=== PATIENT | female | born 1975 | race Caucasian/White ===

== ENCOUNTER 2019-10-25 21:51 | Emergency (ER) | payer MEDICAID, OTHER ==
[~2019-10-25] VITALS: Ht 157.5 cm; Wt 79.7 kg
[2019-10-25] MEDS ORDERED: ketorolac trometh inj. 60 MG/2 ML VIAL IM ONE (23:45)
[2019-10-26 00:23] VITALS: BP 108/62
== END 2019-10-26 00:24 | disposition home or self-care (01) ==
LOC: ER 21:52
DX: S33.5XXA Sprain of ligaments of lumbar spine, initial encounter (principal); R06.02 Shortness of breath; R05 Cough; F17.200 Nicotine dependence, unspecified, uncomplicated; Z98.51 Tubal ligation status; Z98.890 Other specified postprocedural states; Z88.0 Allergy status to penicillin; X58.XXXA Exposure to other specified factors, initial encounter; Y93.89 Activity, other specified; Y92.89 Other specified places as the place of occurrence of the external cause; Y99.8 Other external cause status
CPT/HCPCS: 71045; 96372; 99283; J1885

== ENCOUNTER 2023-07-07 13:51 | Emergency (ER) | payer OTHER ==
[~2023-07-07] VITALS: Ht 157.5 cm; Wt 77.3 kg
[2023-07-07 13:53] VITALS: TEMP 97.9
[2023-07-07 14:35] LABS: BASOPHILS # (AUTO) 0.1 X10'3 (0-0.2); BASOPHILS % (AUTO) 0.7 % (0-1); EOSINOPHILS # (AUTO) 0.1 X10'3 (0-0.9); EOSINOPHILS % (AUTO) 1.4 % (0-6); HEMOGLOBIN 14.9 g/dl (12.0-16.0); LYMPHOCYTES # (AUTO) 2.8 X10'3 (1.1-4.8); LYMPHOCYTES % (AUTO) 28.6 % (21-51); MEAN CORPUSCULAR HGB CONC 33.8 g/dL (33.0-36.5); MEAN CORPUSCULAR VOLUME 97.5 FL (78-98); MEAN PLATELET VOLUME 8.1 FL (7.4-10.4); MONOCYTES # (AUTO) 0.6 X10'3 (0-0.9); MONOCYTES % (AUTO) 6.1 % (2-12); NEUTROPHILS # (AUTO) 6.1 X10'3 (1.8-7.7); NEUTROPHILS % (AUTO) 63.2 % (42-75); PLATELET COUNT 412 X10'3 (140-440); RED BLOOD COUNT 4.51 X10'6 (4.20-5.60); RED CELL DISTRIBUTION WIDTH 13.2 % (11.5-14.5); WHITE BLOOD COUNT 9.7 X10'3 (4.5-11.0)
[2023-07-07 14:54] LABS: ALANINE AMINOTRANSFERASE 46 U/L (12-78); ALBUMIN 3.7 G/DL (3.4-5.0); ALBUMIN/GLOBULIN RATIO 1.1 (1.1-1.5); ALKALINE PHOSPHATASE 98 IU/L (46-116); ANION GAP 6 (8-16); ASPARTATE AMINO TRANSFERASE 23 U/L (10-37); BILIRUBIN,TOTAL 0.2 MG/DL (0.1-1.0); BLOOD UREA NITROGEN 14 MG/DL (7-18); BUN/CREATININE RATIO 19.7 (10.0-20.0); CALCIUM 9.1 MG/DL (8.5-10.1); CHLORIDE 104 MMOL/L (99-107); CREATININE 0.71 MG/DL (0.40-0.90); GLUCOSE 135 MG/DL (70-104); LIPASE 109 U/L (73-393); POTASSIUM 3.7 MMOL/L (3.5-5.1); SODIUM 138 MMOL/L (135-145); eCRCL 77 ML/MIN; eGFR 88 ML/MIN
[2023-07-07 15:41] VITALS: BP 140/102; PULSE 92; RESP 16; O2SAT 97
[2023-07-07] MEDS ORDERED: CYCL-1 PO (16:28)
[2023-07-07] MEDS ORDERED: NAPR-56 PO (16:28)
== END 2023-07-07 16:44 | disposition home or self-care (01) ==
LOC: ER 13:51
DX: S39.012A Strain of muscle, fascia and tendon of lower back, initial encounter (principal); F17.200 Nicotine dependence, unspecified, uncomplicated; Z98.51 Tubal ligation status; Z98.891 History of uterine scar from previous surgery; Z88.0 Allergy status to penicillin; X58.XXXA Exposure to other specified factors, initial encounter; Y93.89 Activity, other specified; Y92.89 Other specified places as the place of occurrence of the external cause; Y99.8 Other external cause status
CPT/HCPCS: 36415; 80053; 83690; 85025; 99283

== ENCOUNTER 2025-02-13 20:55 | Emergency (ER) | payer OTHER ==
[~2025-02-13] VITALS: Ht 157.5 cm; Wt 82.3 kg
[~2025-02-13 20:55] MED LIST: CYCL-1 PO
[2025-02-13 21:04] VITALS: TEMP 98.7
[2025-02-13 21:36] LABS: BASOPHILS # (AUTO) 0.1 X10'3 (0-0.2); BASOPHILS % (AUTO) 0.4 % (0-1); EOSINOPHILS # (AUTO) 0.1 X10'3 (0-0.9); EOSINOPHILS % (AUTO) 1.1 % (0-6); HEMATOCRIT 41.9 % (35.0-45.0); HEMOGLOBIN 14.4 g/dl (12.0-16.0); LYMPHOCYTES # (AUTO) 3.1 X10'3 (1.1-4.8); LYMPHOCYTES % (AUTO) 27.1 % (21-51); MEAN CORPUSCULAR HEMOGLOBIN 32.8 PG (27.0-31.0); MEAN CORPUSCULAR HGB CONC 34.4 g/dL (33.0-36.5); MEAN CORPUSCULAR VOLUME 95.3 FL (78-98); MEAN PLATELET VOLUME 8.1 FL (7.4-10.4); MONOCYTES # (AUTO) 0.6 X10'3 (0-0.9); MONOCYTES % (AUTO) 5.6 % (2-12); NEUTROPHILS # (AUTO) 7.5 X10'3 (1.8-7.7); NEUTROPHILS % (AUTO) 65.8 % (42-75); PLATELET COUNT 435 X10'3 (140-440); RED BLOOD COUNT 4.39 X10'6 (4.20-5.60); RED CELL DISTRIBUTION WIDTH 12.7 % (11.5-14.5); WHITE BLOOD COUNT 11.4 X10'3 (4.5-11.0)
[2025-02-13 21:51] LABS: ALANINE AMINOTRANSFERASE 56 U/L (12-78); ALBUMIN 3.8 G/DL (3.4-5.0); ALBUMIN/GLOBULIN RATIO 1.1 (1.1-1.5); ALKALINE PHOSPHATASE 124 IU/L (46-116); ANION GAP 13 (8-16); ASPARTATE AMINO TRANSFERASE 31 U/L (10-37); BILIRUBIN,TOTAL 0.2 MG/DL (0.1-1.0); BLOOD UREA NITROGEN 14 MG/DL (7-18); BUN/CREATININE RATIO 20.9 (10.0-20.0); CALCIUM 8.5 MG/DL (8.5-10.1); CHLORIDE 106 MMOL/L (99-107); CREATININE 0.67 MG/DL (0.40-0.90); GLUCOSE 108 MG/DL (70-104); LIPASE 43 U/L (16-77); POTASSIUM 3.7 MMOL/L (3.5-5.1); SODIUM 143 MMOL/L (135-145); TOTAL CARBON DIOXIDE 24.3 MMOL/L (24-32); TOTAL PROTEIN 7.2 G/DL (6.4-8.2); eCRCL 81 ML/MIN; eGFR > 90 ML/MIN
[2025-02-13 23:43] VITALS: BP 161/94; PULSE 72; RESP 18; O2SAT 99
== END 2025-02-14 00:18 | disposition left against medical advice (07) ==
LOC: ER 20:55
DX: R07.89 Other chest pain (principal); R10.9 Unspecified abdominal pain; Z88.0 Allergy status to penicillin; Z98.51 Tubal ligation status
CPT/HCPCS: 36415; 80053; 83690; 85025; 99283

== ENCOUNTER 2025-02-18 16:40 | Emergency (ER) | payer OTHER ==
[~2025-02-18] VITALS: Ht 157.5 cm; Wt 85.7 kg
[2025-02-18 16:47] VITALS: BP 158/110; PULSE 106; TEMP 97.6; O2SAT 98
[2025-02-18 17:10] VITALS: RESP 18
[2025-02-18] MEDS: ketorolac trometh 15mg/ml vial 15 MG/ML ML IM ONE (17:10)
[2025-02-18] MEDS ORDERED: CLIN75CA3 PO (17:24)
[2025-02-18] MEDS: LIDOcaine 2% Viscous 15ml cup MM ONE (17:26)
[2025-02-18] MEDS: clindamycin 150mg capsule PO ONE (17:44)
[2025-02-18] MEDS: BUPIVAcaine 0.5% W/EPI /PF 10ml vial IJ STA (17:44)
[2025-02-19] MEDS ORDERED: HYDR-3965 PO (00:08)
== END 2025-02-18 17:46 | disposition home or self-care (01) ==
LOC: ER 16:40
DX: K08.89 Other specified disorders of teeth and supporting structures (principal); Z88.0 Allergy status to penicillin; Z98.51 Tubal ligation status
CPT/HCPCS: 64400; 96372; 99284; J1885

== ENCOUNTER 2025-02-18 23:29 | Emergency (ER) | payer OTHER ==
[~2025-02-18] VITALS: Ht 157.5 cm; Wt 86.0 kg
[~2025-02-18 23:29] MED LIST changes: +CLIN75CA3 PO
[2025-02-18 23:31] VITALS: BP 182/112; PULSE 98; TEMP 97.7; O2SAT 98
[2025-02-18 23:57] VITALS: RESP 16
[2025-02-18] MEDS: HYDROcodone/acetaminophen 10/325mg tab PO ONE (23:57)
[2025-02-18] MEDS: ketorolac trometh 15mg/ml vial 15 MG/ML ML IM ONE (23:57)
[2025-02-19] MEDS ORDERED: HYDR-3965 PO (00:08)
== END 2025-02-19 00:17 | disposition home or self-care (01) ==
LOC: ER 23:29
DX: S02.5XXA Fracture of tooth (traumatic), initial encounter for closed fracture (principal); Z88.0 Allergy status to penicillin; Z98.51 Tubal ligation status; X58.XXXA Exposure to other specified factors, initial encounter; Y93.89 Activity, other specified; Y92.89 Other specified places as the place of occurrence of the external cause; Y99.8 Other external cause status
CPT/HCPCS: 96372; 99283; J1885